=== PATIENT | female | born 1965 | race Caucasian/White ===

== ENCOUNTER 2017-12-12 07:20 | Day surgery (SDC) | payer OTHER ==
[2017-12-12] MEDS: SOD CHLORIDE 0.9% 250 ML (13:42)
[2017-12-12] MEDS: CEFAZOLIN 1 GM/50 ML (PMX) 50 ML IVPB ×2 (13:42→15:00)
[2017-12-12] MEDS: DIPHENHYDRAMINE 50 MG INJ (14:51)
[2017-12-12] MEDS: SOD CHLORIDE 0.9% 1,000 ML IV (15:00)
[2017-12-12] MEDS: FENTAnyl 50 MCG/ML VIAL ×2 (15:15→15:25)
[2017-12-12] MEDS: MIDAZOLAM 1 MG/ML 2 ML INJ ×2 (15:20→15:23)
[2017-12-12] MEDS: LIDOCAINE 1%/EPI 30 ML INJ (15:20)
[2017-12-12] MEDS: HEPARIN 1000 UNITS/ML 10 ML INJ (15:30)
[2017-12-12] MEDS: POLYMYXIN/BACITRACIN 1L IRRIG IRR (15:50)
[2017-12-12] MEDS ORDERED: HYDROCODONE/APAP (5/325) TAB PO (16:00)
== END 2017-12-12 17:58 | disposition home or self-care (01) ==
LOC: SDS 07:20
DX: C50.911 Malignant neoplasm of unspecified site of right female breast (principal)
CPT/HCPCS: 36561; 76942

== ENCOUNTER 2018-03-09 07:51 | Observation (INO) | payer OTHER ==
[~2018-03-09 07:51] MED LIST: CEFAZOLIN 1 GM INJ; EPINEPHrine 0.1 MG/ML SYG; SUCCINYLCHOLINE CHLORIDE 100 MG/5 ML SYG IV
[2018-03-09 09:31] LABS: ADD MAN DIFF? NO
[2018-03-09 09:37] LABS: BASOPHILS % 0.5 % (0.0-2.0); EOSINOPHILS # 0.7 10^3/ul (0.0-0.5); EOSINOPHILS % 8.3 % (0.0-7.0); HEMATOCRIT 39.2 % (37.0-47.0); HEMOGLOBIN 12.4 g/dl (12.0-16.0); LYMPHOCYTES # 1.6 10^3/ul (0.8-2.9); LYMPHOCYTES % 18.3 % (15.0-51.0); MEAN CORPUSCULAR HEMOGLOBIN 25.8 pg (29.0-33.0); MEAN CORPUSCULAR HGB CONC 31.6 g/dl (32.0-37.0); MEAN CORPUSCULAR VOLUME 81.7 fl (82.0-101.0); MEAN PLATELET VOLUME 11.6 fl (7.4-10.4); MONOCYTE # 0.9 10^3/ul (0.3-0.9); NEUTROPHIL # 5.3 10^3/ul (1.6-7.5); NEUTROPHILS % 61.4 % (39.0-77.0); PLATELET COUNT 205 10^3/UL (140-415); RED CELL DISTRIBUTION WIDTH 17.8 % (11.5-14.5)
[2018-03-09 09:37] LABS: WHITE BLOOD COUNT 8.5 10^3/ul (4.8-10.8)
[2018-03-09 09:52] LABS: ALANINE AMINOTRANSFERASE 36 IU/L (13-69); ALBUMIN 4.2 g/dl (3.3-4.9); ALBUMIN/GLOBULIN RATIO 1.35; ALKALINE PHOSPHATASE 75 IU/L (42-121); ANION GAP 12 (8-16); ASPARTATE AMINO TRANSFERASE 20 IU/L (15-46); BILIRUBIN,INDIRECT 0.3 mg/dl (0-1.1); BILIRUBIN,TOTAL 0.3 mg/dl (0.2-1.3); CARBON DIOXIDE 27 mmol/L (21-31); CHLORIDE 106 mmol/L (97-110); GLUCOSE 108 mg/dl (70-220); TOTAL PROTEIN 7.3 g/dl (6.1-8.1)
[2018-03-09 09:53] LABS: BLOOD UREA NITROGEN 17 mg/dl (7-20); CALCIUM 9.1 mg/dl (8.4-10.2); CREATININE 0.61 mg/dl (0.44-1.00); POTASSIUM 3.8 mmol/L (3.5-5.1); SODIUM 141 mmol/L (135-144)
[2018-03-09 09:57] LABS: INR 1.04; PROTIME 13.7 Sec (11.9-14.9); PT RATIO 1.1
[2018-03-09 09:58] LABS: PARTIAL THROMBOPLASTIN TIME 30.3 Sec (25.0-35.0)
[2018-03-09] MEDS ORDERED: ONDANSETRON 4 MG INJ (10:17)
[2018-03-09] MEDS ORDERED: ACETAMINOPHEN 1000MG/100ML IV 100 ML (10:17)
[2018-03-09] MEDS ORDERED: PROPOFOL 20 ML (10:17)
[2018-03-09] MEDS ORDERED: ROCURONIUM 50 MG INJ (10:17)
[2018-03-09] MEDS ORDERED: DEXAMETHASONE 4 MG/ML 1 ML INJ (10:17)
[2018-03-09] MEDS ORDERED: FENTAnyl 50 MCG/ML VIAL ×2 (10:17→11:42)
[2018-03-09] MEDS ORDERED: DIPHENHYDRAMINE 50 MG INJ IV (10:30)
[2018-03-09] MEDS ORDERED: METOCLOPRAMIDE 10 MG INJ IV ×3 (10:30→18:00)
[2018-03-09] MEDS ORDERED: MEPERIDINE 25 MG INJ IV (10:30)
[2018-03-09] MEDS ORDERED: FENTAnyl 50 MCG/ML VIAL IV ×2 (10:30)
[2018-03-09] MEDS ORDERED: LABETALOL HCL 20MG INJ IV (10:30)
[2018-03-09] MEDS ORDERED: hydrALAzine 20 MG INJ IV (10:30)
[2018-03-09] MEDS ORDERED: METOCLOPRAMIDE 10 MG INJ (10:45)
[2018-03-09] MEDS ORDERED: SCOPOLAMINE 1.5 MG PATCH (10:49)
[2018-03-09] MEDS ORDERED: PROVENTIL HFA 6.7GM INHALER (11:08)
[2018-03-09] MEDS ORDERED: SUGAMMADEX SODIUM 200 MG/2 ML VIAL IV (11:08)
[2018-03-09] MEDS ORDERED: HYDROCORTISONE 100 MG INJ (11:26)
[2018-03-09] MEDS: HYDROmorphONE 1 MG/5 ML IV SYRINGE IV (12:34)
[2018-03-09] MEDS: D5W-0.45 NACL + KCL 20 MEQ 1,000 ML IV ×3 (14:15→23:29)
[2018-03-09] MEDS: METOCLOPRAMIDE 10 MG INJ IV (15:15)
[2018-03-09] MEDS: ACETAMINOPHEN 1000MG/100ML IV 100 ML IVPB (15:26)
[2018-03-09] MEDS: morphine 2 MG INJ IV ×2 (20:13→23:30)
[2018-03-10 05:17] LABS: ADD MAN DIFF? NO
[2018-03-10 05:27] LABS: BASOPHILS % 0.1 % (0.0-2.0); EOSINOPHILS % 0.1 % (0.0-7.0); HEMATOCRIT 34.6 % (37.0-47.0); HEMOGLOBIN 10.8 g/dl (12.0-16.0); LYMPHOCYTES # 1.6 10^3/ul (0.8-2.9); LYMPHOCYTES % 8.8 % (15.0-51.0); MEAN CORPUSCULAR HEMOGLOBIN 25.8 pg (29.0-33.0); MEAN CORPUSCULAR HGB CONC 31.2 g/dl (32.0-37.0); MEAN CORPUSCULAR VOLUME 82.6 fl (82.0-101.0); MONOCYTE # 1.3 10^3/ul (0.3-0.9); MONOCYTES % 7.4 % (0.0-11.0); NEUTROPHIL # 14.9 10^3/ul (1.6-7.5); NEUTROPHILS % 83.1 % (39.0-77.0); PLATELET COUNT 219 10^3/UL (140-415); RED BLOOD COUNT 4.19 10^6/ul (4.20-5.40); RED CELL DISTRIBUTION WIDTH 18.3 % (11.5-14.5)
[2018-03-10 05:27] LABS: WHITE BLOOD COUNT 17.9 10^3/ul (4.8-10.8)
[2018-03-10] MEDS: HYDROCHLOROTHIAZIDE 25 MG TAB PO (05:45)
[2018-03-10] MEDS: D5W-0.45 NACL + KCL 20 MEQ 1,000 ML IV ×2 (05:45→17:21)
[2018-03-10 06:05] LABS: ANION GAP 12 (8-16); BLOOD UREA NITROGEN 14 mg/dl (7-20); CALCIUM 8.9 mg/dl (8.4-10.2); CARBON DIOXIDE 27 mmol/L (21-31); CHLORIDE 105 mmol/L (97-110); CREATININE 0.65 mg/dl (0.44-1.00); GLUCOSE 150 mg/dl (70-220); POTASSIUM 3.8 mmol/L (3.5-5.1); SODIUM 140 mmol/L (135-144)
[2018-03-10] MEDS: BENAZEPRIL 10 MG TAB PO (08:56)
[2018-03-10] MEDS ORDERED: BENAZEPRIL 10 MG TAB PO (09:00)
[2018-03-10] MEDS ORDERED: HYDROCHLOROTHIAZIDE 25 MG TAB PO (09:00)
[2018-03-10] MEDS: ALBUTEROL/IPRATROPIUM (NEB) 3 ML AMP HHN ×3 (10:00→19:42)
[2018-03-10] MEDS: LEVOFLOXACIN 500MG/D5W (PMX) 100 ML IVPB (10:34)
[2018-03-10] MEDS: METHYLPREDNISOLONE 40 MG INJ IV (10:34)
[2018-03-10] MEDS: ACETAMINOPHEN 1000MG/100ML IV 100 ML IVPB (12:02)
[2018-03-10] MEDS: PROMETHAZINE/CODEINE 5ML CUP PO ×2 (12:03→20:29)
[2018-03-10] MEDS: morphine 2 MG INJ IV (18:13)
[2018-03-11] MEDS: ALBUTEROL/IPRATROPIUM (NEB) 3 ML AMP HHN ×3 (01:16→13:13)
[2018-03-11] MEDS: D5W-0.45 NACL + KCL 20 MEQ 1,000 ML IV ×2 (04:07→11:23)
[2018-03-11 05:38] LABS: ADD MAN DIFF? NO
[2018-03-11 05:46] LABS: BASOPHILS % 0.2 % (0.0-2.0); EOSINOPHILS # 0.1 10^3/ul (0.0-0.5); EOSINOPHILS % 0.4 % (0.0-7.0); HEMATOCRIT 34.5 % (37.0-47.0); HEMOGLOBIN 10.4 g/dl (12.0-16.0); LYMPHOCYTES # 2.5 10^3/ul (0.8-2.9); LYMPHOCYTES % 18.2 % (15.0-51.0); MEAN CORPUSCULAR HEMOGLOBIN 25.8 pg (29.0-33.0); MEAN CORPUSCULAR HGB CONC 30.1 g/dl (32.0-37.0); MEAN CORPUSCULAR VOLUME 85.6 fl (82.0-101.0); MEAN PLATELET VOLUME 11.8 fl (7.4-10.4); MONOCYTE # 1.1 10^3/ul (0.3-0.9); MONOCYTES % 8.1 % (0.0-11.0); NEUTROPHIL # 9.8 10^3/ul (1.6-7.5); NEUTROPHILS % 72.5 % (39.0-77.0); PLATELET COUNT 183 10^3/UL (140-415); RED BLOOD COUNT 4.03 10^6/ul (4.20-5.40); RED CELL DISTRIBUTION WIDTH 18.8 % (11.5-14.5)
[2018-03-11 05:46] LABS: WHITE BLOOD COUNT 13.6 10^3/ul (4.8-10.8)
[2018-03-11] MEDS: HYDROCHLOROTHIAZIDE 25 MG TAB PO (05:54)
[2018-03-11] MEDS: morphine 2 MG INJ IV (06:09)
[2018-03-11 06:14] LABS: ANION GAP 10 (8-16); BLOOD UREA NITROGEN 13 mg/dl (7-20); CALCIUM 8.5 mg/dl (8.4-10.2); CARBON DIOXIDE 28 mmol/L (21-31); CHLORIDE 109 mmol/L (97-110); CREATININE 0.63 mg/dl (0.44-1.00); GLUCOSE 135 mg/dl (70-220); POTASSIUM 4.3 mmol/L (3.5-5.1); SODIUM 143 mmol/L (135-144)
[2018-03-11] MEDS: LEVOFLOXACIN 500MG/D5W (PMX) 100 ML IVPB (08:23)
[2018-03-11] MEDS: PROMETHAZINE/CODEINE 5ML CUP PO ×2 (08:24→12:43)
[2018-03-11] MEDS: METHYLPREDNISOLONE 40 MG INJ IV (08:24)
[2018-03-11] MEDS: BENAZEPRIL 10 MG TAB PO (08:24)
[2018-03-11] MEDS: morphine LIQ (10 MG/5 ML) CUP PO (15:50)
== END 2018-03-11 18:35 | disposition home or self-care (01) ==
LOC: SDS 07:51 → REC 12:03 → PP2 13:59
DX: C50.411 Malignant neoplasm of upper-outer quadrant of right female breast (principal); C77.3 Secondary and unspecified malignant neoplasm of axilla and upper limb lymph nodes; Z17.0 Estrogen receptor positive status [ER+]; I10 Essential (primary) hypertension; J45.901 Unspecified asthma with (acute) exacerbation; Z88.8 Allergy status to other drugs, medicaments and biological substances
CPT/HCPCS: 19301; 71045; 80048; 80053; 84703; 85025; 85610; 85730; 88307; 93005; 94640; 94664; G0378

== ENCOUNTER → 2018-05-07 | Outpatient (CLI) | payer OTHER | END | disposition home or self-care (01) | LOC: EKG 08:50 | DX: C50.919 Malignant neoplasm of unspecified site of unspecified female breast (principal) | CPT/HCPCS: 93306 ==

== ENCOUNTER 2018-07-13 11:37 | Inpatient (IN) | payer OTHER ==
[~2018-07-13 11:37] MED LIST changes: -CEFAZOLIN 1 GM INJ; +CEFAZOLIN 2 GM/50 ML (PMX) 50 ML IVPB; -EPINEPHrine 0.1 MG/ML SYG; +SOD CHLORIDE 0.9% 1,000 ML IV; -SUCCINYLCHOLINE CHLORIDE 100 MG/5 ML SYG IV
[2018-07-13] MEDS ORDERED: PROPOFOL 20 ML ×2 (12:00→14:02)
[2018-07-13] MEDS ORDERED: GLYCOPYRROLATE 0.4 MG INJ (12:00)
[2018-07-13] MEDS ORDERED: FENTAnyl 50 MCG/ML VIAL (12:00)
[2018-07-13] MEDS ORDERED: MIDAZOLAM 1 MG/ML 2 ML INJ (12:00)
[2018-07-13] MEDS ORDERED: LIDOCAINE 2% (SDV) 5 ML INJ ×2 (12:00→14:02)
[2018-07-13] MEDS ORDERED: ROCURONIUM 50 MG INJ (12:00)
[2018-07-13] MEDS ORDERED: NEOSTIGMINE 3 MG/3 ML SYRINGE (12:00)
[2018-07-13] MEDS ORDERED: DEXAMETHASONE 4 MG/ML 1 ML INJ ×2 (12:01→14:02)
[2018-07-13] MEDS ORDERED: ONDANSETRON 4 MG INJ (12:01)
[2018-07-13] MEDS ORDERED: CEFAZOLIN 1 GM INJ ×3 (12:01→14:02)
[2018-07-13 13:14] LABS: ADD MAN DIFF? NO
[2018-07-13 13:16] LABS: WHITE BLOOD COUNT 13.9 10^3/ul (4.8-10.8)
[2018-07-13 13:16] LABS: BASOPHIL # 0.1 10^3/ul (0.0-0.1); BASOPHILS % 0.4 % (0.0-2.0); EOSINOPHILS # 0.1 10^3/ul (0.0-0.5); EOSINOPHILS % 0.9 % (0.0-7.0); HEMATOCRIT 39.4 % (37.0-47.0); HEMOGLOBIN 12.6 g/dl (12.0-16.0); LYMPHOCYTES % 14.2 % (15.0-51.0); MEAN CORPUSCULAR HEMOGLOBIN 26.5 pg (29.0-33.0); MEAN CORPUSCULAR VOLUME 82.8 fl (82.0-101.0); MONOCYTE # 1.2 10^3/ul (0.3-0.9); MONOCYTES % 8.5 % (0.0-11.0); NEUTROPHIL # 10.5 10^3/ul (1.6-7.5); NEUTROPHILS % 75.6 % (39.0-77.0); PLATELET COUNT 245 10^3/UL (140-415); RED BLOOD COUNT 4.76 10^6/ul (4.20-5.40); RED CELL DISTRIBUTION WIDTH 16.7 % (11.5-14.5)
[2018-07-13 13:23] LABS: HOLD TRANSMISSIONS 1
[2018-07-13 13:43] LABS: ALANINE AMINOTRANSFERASE 27 IU/L (13-69); ALBUMIN 4.5 g/dl (3.3-4.9); ALBUMIN/GLOBULIN RATIO 1.32; ALKALINE PHOSPHATASE 83 IU/L (42-121); ANION GAP 12 (5-13); ASPARTATE AMINO TRANSFERASE 22 IU/L (15-46); BILIRUBIN,INDIRECT 0.5 mg/dl (0-1.1); BILIRUBIN,TOTAL 0.5 mg/dl (0.2-1.3); BLOOD UREA NITROGEN 13 mg/dl (7-20); CALCIUM 9.7 mg/dl (8.4-10.2); CARBON DIOXIDE 29 mmol/L (21-31); CHLORIDE 103 mmol/L (97-110); CREATININE 0.72 mg/dl (0.44-1.00); GLUCOSE 100 mg/dl (70-220); POTASSIUM 3.8 mmol/L (3.5-5.1); SODIUM 144 mmol/L (135-144); TOTAL PROTEIN 7.9 g/dl (6.1-8.1)
[2018-07-13] MEDS ORDERED: METOCLOPRAMIDE 10 MG INJ IV (14:00)
[2018-07-13] MEDS ORDERED: DIPHENHYDRAMINE 50 MG INJ IV ×3 (14:00→16:30)
[2018-07-13] MEDS ORDERED: MEPERIDINE 25 MG INJ IV (14:00)
[2018-07-13] MEDS ORDERED: HYDROmorphONE 1 MG/5 ML IV SYRINGE IV ×3 (14:00)
[2018-07-13] MEDS ORDERED: OXYCODONE/ACETAMINOPHEN (5/325) TAB PO ×3 (14:00→15:30)
[2018-07-13] MEDS ORDERED: LABETALOL HCL 20MG INJ IV (14:00)
[2018-07-13] MEDS ORDERED: MIDAZOLAM 1 MG/ML 2 ML INJ IV (14:00)
[2018-07-13] MEDS ORDERED: FENTAnyl 50 MCG/ML VIAL IV ×2 (14:00)
[2018-07-13] MEDS ORDERED: EPHEDrine SULFATE 50 MG/5 ML SYG IV (14:00)
[2018-07-13] MEDS ORDERED: hydrALAzine 20 MG INJ IV (14:00)
[2018-07-13] MEDS ORDERED: METOCLOPRAMIDE 10 MG INJ (14:02)
[2018-07-13] MEDS ORDERED: MEPERIDINE /PF (100 MG/2 ML) AMPULE (14:42)
[2018-07-13] MEDS ORDERED: EPHEDrine SULFATE 50 MG/5 ML SYG (15:12)
[2018-07-13] MEDS ORDERED: NALOXONE (0.4 MG/ML) INJ IV (15:30)
[2018-07-13] MEDS ORDERED: KETOROLAC 30 MG INJ IV (15:30)
[2018-07-13] MEDS: FENTAnyl 50 MCG/ML VIAL IV (15:55)
[2018-07-13] MEDS: HYDROmorphONE 0.2 MG/ML PCA IV (16:07)
[2018-07-13] MEDS ORDERED: ACETAMINOPHEN 325 MG TAB PO (16:30)
[2018-07-13] MEDS: METOCLOPRAMIDE 10 MG INJ IV (17:45)
[2018-07-13] MEDS: SOD CHLORIDE 0.9% 1,000 ML IV (17:45)
[2018-07-13] MEDS ORDERED: PROCHLORPERAZINE 10 MG INJ IM (18:30)
[2018-07-14] MEDS: METOCLOPRAMIDE 10 MG INJ IV ×2 (03:05→09:00)
[2018-07-14 05:32] LABS: ADD MAN DIFF? NO
[2018-07-14 05:37] LABS: WHITE BLOOD COUNT 15.4 10^3/ul (4.8-10.8)
[2018-07-14 05:37] LABS: BASOPHILS % 0.1 % (0.0-2.0); HEMATOCRIT 33.8 % (37.0-47.0); HEMOGLOBIN 10.7 g/dl (12.0-16.0); LYMPHOCYTES # 0.8 10^3/ul (0.8-2.9); LYMPHOCYTES % 5.3 % (15.0-51.0); MEAN CORPUSCULAR HEMOGLOBIN 26.8 pg (29.0-33.0); MEAN CORPUSCULAR HGB CONC 31.7 g/dl (32.0-37.0); MEAN CORPUSCULAR VOLUME 84.5 fl (82.0-101.0); MEAN PLATELET VOLUME 11.4 fl (7.4-10.4); MONOCYTE # 0.9 10^3/ul (0.3-0.9); MONOCYTES % 5.6 % (0.0-11.0); NEUTROPHIL # 13.6 10^3/ul (1.6-7.5); NEUTROPHILS % 88.4 % (39.0-77.0); PLATELET COUNT 224 10^3/UL (140-415); RED CELL DISTRIBUTION WIDTH 16.9 % (11.5-14.5)
[2018-07-14] MEDS: HYDROCHLOROTHIAZIDE 25 MG TAB PO ×2 (08:45→14:36)
[2018-07-14] MEDS: BENAZEPRIL 10 MG TAB PO ×2 (08:45→14:36)
[2018-07-14] MEDS: HYDROmorphONE 0.2 MG/ML PCA IV (10:15)
[2018-07-14] MEDS: OXYCODONE/ACETAMINOPHEN (5/325) TAB PO ×2 (14:39→18:42)
[2018-07-15] MEDS: OXYCODONE/ACETAMINOPHEN (5/325) TAB PO ×3 (01:35→14:58)
[2018-07-15 05:14] LABS: ADD MAN DIFF? NO
[2018-07-15 05:17] LABS: BASOPHILS % 0.4 % (0.0-2.0); EOSINOPHILS # 0.1 10^3/ul (0.0-0.5); EOSINOPHILS % 0.9 % (0.0-7.0); HEMATOCRIT 29.3 % (37.0-47.0); HEMOGLOBIN 9.4 g/dl (12.0-16.0); LYMPHOCYTES # 2.1 10^3/ul (0.8-2.9); LYMPHOCYTES % 19.2 % (15.0-51.0); MEAN CORPUSCULAR HEMOGLOBIN 26.9 pg (29.0-33.0); MEAN CORPUSCULAR HGB CONC 32.1 g/dl (32.0-37.0); MEAN CORPUSCULAR VOLUME 83.7 fl (82.0-101.0); MEAN PLATELET VOLUME 11.5 fl (7.4-10.4); MONOCYTE # 0.9 10^3/ul (0.3-0.9); MONOCYTES % 8.5 % (0.0-11.0); NEUTROPHIL # 7.9 10^3/ul (1.6-7.5); NEUTROPHILS % 70.6 % (39.0-77.0); PLATELET COUNT 203 10^3/UL (140-415); RED CELL DISTRIBUTION WIDTH 17.1 % (11.5-14.5)
[2018-07-15 05:17] LABS: WHITE BLOOD COUNT 11.1 10^3/ul (4.8-10.8)
[2018-07-15] MEDS: BENAZEPRIL 10 MG TAB PO (08:23)
[2018-07-15] MEDS: HYDROCHLOROTHIAZIDE 25 MG TAB PO (08:24)
== END 2018-07-15 16:29 | disposition home or self-care (01) | DRG 581 ==
LOC: REC 11:37 → PP2 17:10
PROC: 0HTT0ZZ Resection of Right Breast, Open Approach (ICD-10-PCS; principal; 2018-07-13 13:00)
PROC: 07B50ZX Excision of Right Axillary Lymphatic, Open Approach, Diagnostic (ICD-10-PCS; 2018-07-13 13:00)
DX: C50.911 Malignant neoplasm of unspecified site of right female breast (principal); I10 Essential (primary) hypertension
CPT/HCPCS: 71045; 80053; 85025; 88307; 93005

== ENCOUNTER 2018-11-23 11:10 | Day surgery (SDC) | payer OTHER ==
[2018-11-23] MEDS: BUPIVACAINE 0.5% (SDV) 30 ML INJ (12:38)
[2018-11-23] MEDS ORDERED: MIDAZOLAM 1 MG/ML 2 ML INJ (13:41)
[2018-11-23] MEDS ORDERED: FENTAnyl 50 MCG/ML VIAL (13:41)
[2018-11-23] MEDS ORDERED: PROPOFOL 20 ML (15:00)
[2018-11-23] MEDS ORDERED: LIDOCAINE 2% (SDV) 5 ML INJ (15:00)
[2018-11-23] MEDS ORDERED: CEFAZOLIN 1 GM INJ (15:01)
[2018-11-23] MEDS ORDERED: ONDANSETRON 4 MG INJ (15:01)
[2018-11-23] MEDS ORDERED: METOCLOPRAMIDE 10 MG INJ (15:01)
[2018-11-23] MEDS ORDERED: ACETAMINOPHEN 1000MG/100ML IV 100 ML IVPB (15:30)
[2018-11-23] MEDS ORDERED: LABETALOL HCL 20MG INJ IV (16:00)
[2018-11-23] MEDS ORDERED: hydrALAzine 20 MG INJ IV (16:00)
[2018-11-23] MEDS ORDERED: METOCLOPRAMIDE 10 MG INJ IV (16:00)
[2018-11-23] MEDS: FENTAnyl 50 MCG/ML VIAL IV (16:08)
[2018-11-23] MEDS: DIPHENHYDRAMINE 50 MG INJ IV (16:08)
[2018-11-23] MEDS: D5W-0.45 NACL + KCL 20 MEQ 1,000 ML IV ×2 (17:24→23:04)
[2018-11-23] MEDS: HYDROCODONE/APAP (5/325) TAB PO (19:23)
[2018-11-24] MEDS: HYDROCODONE/APAP (5/325) TAB PO ×3 (02:31→20:18)
[2018-11-24] MEDS: D5W-0.45 NACL + KCL 20 MEQ 1,000 ML IV ×3 (05:50→22:39)
[2018-11-24 06:25] LABS: ABNORMAL IP MESSAGE 1; HEMATOCRIT 23.6 % (37.0-47.0); HEMOGLOBIN 7.5 g/dl (12.0-16.0); MEAN CORPUSCULAR HEMOGLOBIN 25.4 pg (29.0-33.0); MEAN CORPUSCULAR HGB CONC 31.8 g/dl (32.0-37.0); PLATELET COUNT 33 10^3/UL (140-415); RED BLOOD COUNT 2.95 10^6/ul (4.20-5.40); RED CELL DISTRIBUTION WIDTH 19.8 % (11.5-14.5)
[2018-11-24 06:25] LABS: WHITE BLOOD COUNT 4.2 10^3/ul (4.8-10.8)
[2018-11-24 06:33] LABS: POSITIVE DIFF @See below
[2018-11-24 06:34] LABS: ADD MAN DIFF? YES
[2018-11-24 06:53] LABS: ANION GAP 7 (5-13); BLOOD UREA NITROGEN 10 mg/dl (7-20); CALCIUM 8.3 mg/dl (8.4-10.2); CARBON DIOXIDE 28 mmol/L (21-31); CHLORIDE 103 mmol/L (97-110); CREATININE 0.66 mg/dl (0.44-1.00); Estimated GFR > 60 mL/min (>60); GLUCOSE 136 mg/dl (70-220); POTASSIUM 3.5 mmol/L (3.5-5.1); SODIUM 138 mmol/L (135-144)
[2018-11-24] MEDS: KETOROLAC 30 MG INJ IV (09:51)
[2018-11-24 10:04] LABS: ANISOCYTOSIS 3+ (0-0); BAND NEUTROPHILS #M 0.5 10^3/ul (0.0-0.6); BAND NEUTROPHILS % (M) 13 % (0-4); LYMPHOCYTES #M 0.9 10^3/ul (0.8-2.9); LYMPHOCYTES % (M) 23 % (15-51); MICROCYTOSIS 3+ (0-0); MONOCYTE #M 0.1 10^3/ul (0.3-0.9); MONOCYTES % (M) 4 % (0-11); MYELOCYTES #M 0.1 10^3/ul (0.0-0.0); MYELOCYTES % (M) 3 % (0-0); PLATELET ESTIMATE SIG DECREASED; POIKILOCYTOSIS 1+ (0-0); PROMYELOCYTES % (M) 1 % (0-0); SEG NEUT #M 2.4 10^3/ul (1.6-7.5); SEGMENTED NEUTROPHILS (M) % 56 % (39-77); SMUDGE%M 2 % (0-0)
[2018-11-24] MEDS: BENAZEPRIL 10 MG TAB PO (17:00)
[2018-11-24] MEDS: HYDROCHLOROTHIAZIDE 25 MG TAB PO (17:00)
[2018-11-24] MEDS: METOCLOPRAMIDE 10 MG INJ IV (21:35)
[2018-11-25] MEDS: HYDROCODONE/APAP (5/325) TAB PO ×3 (03:52→14:14)
[2018-11-25] MEDS: HYDROCHLOROTHIAZIDE 25 MG TAB PO (06:08)
[2018-11-25 06:17] LABS: ADD MAN DIFF? NO
[2018-11-25 06:20] LABS: WHITE BLOOD COUNT 3.7 10^3/ul (4.8-10.8)
[2018-11-25 06:20] LABS: ABNORMAL IP MESSAGE 1; EOSINOPHILS % 0.5 % (0.0-7.0); HEMATOCRIT 24.3 % (37.0-47.0); HEMOGLOBIN 7.8 g/dl (12.0-16.0); LYMPHOCYTES # 1.2 10^3/ul (0.8-2.9); LYMPHOCYTES % 32.9 % (15.0-51.0); MEAN CORPUSCULAR HEMOGLOBIN 25.5 pg (29.0-33.0); MEAN CORPUSCULAR HGB CONC 32.1 g/dl (32.0-37.0); MEAN CORPUSCULAR VOLUME 79.4 fl (82.0-101.0); MONOCYTE # 0.7 10^3/ul (0.3-0.9); MONOCYTES % 17.8 % (0.0-11.0); NEUTROPHIL # 1.8 10^3/ul (1.6-7.5); NEUTROPHILS % 48.3 % (39.0-77.0); RED BLOOD COUNT 3.06 10^6/ul (4.20-5.40); RED CELL DISTRIBUTION WIDTH 20.6 % (11.5-14.5)
[2018-11-25 06:42] LABS: PLATELET COUNT 40 10^3/UL (140-415); POSITIVE DIFF @See below
[2018-11-25] MEDS: D5W-0.45 NACL + KCL 20 MEQ 1,000 ML IV ×2 (06:59→15:04)
[2018-11-25] MEDS: BENAZEPRIL 10 MG TAB PO (08:56)
== END 2018-11-25 16:50 | disposition home or self-care (01) ==
LOC: SDS 11-25 16:50 → REC 17:10 → SDS 11:10 → 2NE 17:10 → REC 15:27 → 2NE 17:10
DX: C50.911 Malignant neoplasm of unspecified site of right female breast (principal); I10 Essential (primary) hypertension
CPT/HCPCS: 19260; 80048; 84703; 85025; 88307

== ENCOUNTER 2018-12-06 20:47 | Inpatient (IN) | payer OTHER ==
[2018-12-07] MEDS ORDERED: ACETAMINOPHEN 325 MG TAB PO (01:00)
[2018-12-07] MEDS ORDERED: ALBUTEROL/IPRATROPIUM (NEB) 3 ML AMP HHN (01:00)
[2018-12-07] MEDS ORDERED: VANCOMYCIN IV PER PHARMACY XX (01:00)
[2018-12-07] MEDS ORDERED: NACL 0.9% 3 ML SYG IV (01:00)
[2018-12-07] MEDS: CEFEPIME 1GM/50 ML (PMX) 50 ML IVPB ×4 (01:41→22:36)
[2018-12-07] MEDS: VANCOMYCIN HCL 1.5 GM in SOD CHLORIDE 0.9% 250 ML IVPB (04:25)
[2018-12-07] MEDS: POLYETHYLENE GLYCOL 17 GM PACKET PO (04:59)
[2018-12-07] MEDS: morphine 2 MG INJ IV ×2 (04:59→09:07)
[2018-12-07] MEDS: FERROUS SULFATE (EC) 325 MG TAB PO ×2 (08:59→21:06)
[2018-12-07] MEDS: BENAZEPRIL 10 MG TAB PO (08:59)
[2018-12-07 13:48] LABS: CREATININE 0.63 mg/dl (0.44-1.00)
[2018-12-07 13:48] LABS: BLOOD UREA NITROGEN 12 mg/dl (7-20)
[2018-12-07] MEDS ORDERED: VANCOMYCIN 1 GM 250 ML IVPB (15:00)
[2018-12-07] MEDS: VANCOMYCIN 1 GM 250 ML IVPB (16:16)
[2018-12-07] MEDS: HYDROCODONE/APAP (5/325) TAB PO ×2 (16:20→21:07)
[2018-12-07] MEDS ORDERED: NIRAPARIB TOSYLATE 100 MG PO (21:00)
[2018-12-07] MEDS: DOCUSATE SODIUM 100 MG CAP PO (21:06)
[2018-12-07] MEDS ORDERED: COLLAGENASE 5 GM (UD JAR) TOP (22:05)
[2018-12-08] MEDS: VANCOMYCIN 1 GM 250 ML IVPB ×2 (04:45→17:37)
[2018-12-08] MEDS: HYDROCODONE/APAP (5/325) TAB PO ×4 (05:15→21:09)
[2018-12-08] MEDS: METOCLOPRAMIDE 10 MG INJ IV (05:16)
[2018-12-08 05:20] LABS: WHITE BLOOD COUNT 8.5 10^3/ul (4.8-10.8)
[2018-12-08 05:20] LABS: ABNORMAL IP MESSAGE 1; HEMATOCRIT 20.5 % (37.0-47.0); MEAN CORPUSCULAR HEMOGLOBIN 27.6 pg (29.0-33.0); MEAN CORPUSCULAR HGB CONC 31.2 g/dl (32.0-37.0); MEAN CORPUSCULAR VOLUME 88.4 fl (82.0-101.0); MEAN PLATELET VOLUME 9.5 fl (7.4-10.4); PLATELET COUNT 278 10^3/UL (140-415); RED BLOOD COUNT 2.32 10^6/ul (4.20-5.40); RED CELL DISTRIBUTION WIDTH 24.5 % (11.5-14.5)
[2018-12-08 05:25] LABS: POSITIVE DIFF @See below
[2018-12-08 05:26] LABS: ADD MAN DIFF? YES; HEMOGLOBIN 6.4 g/dl (12.0-16.0)
[2018-12-08 06:09] LABS: ALANINE AMINOTRANSFERASE 14 IU/L (13-69); ALBUMIN 3.4 g/dl (3.3-4.9); ALBUMIN/GLOBULIN RATIO 1.09; ALKALINE PHOSPHATASE 82 IU/L (42-121); ANION GAP 7 (5-13); ASPARTATE AMINO TRANSFERASE 14 IU/L (15-46); BILIRUBIN,INDIRECT 0.2 mg/dl (0-1.1); BILIRUBIN,TOTAL 0.2 mg/dl (0.2-1.3); BLOOD UREA NITROGEN 11 mg/dl (7-20); CALCIUM 8.6 mg/dl (8.4-10.2); CARBON DIOXIDE 26 mmol/L (21-31); CHLORIDE 103 mmol/L (97-110); CREATININE 0.57 mg/dl (0.44-1.00); Estimated GFR > 60 mL/min (>60); GLUCOSE 113 mg/dl (70-220); MAGNESIUM 2.3 mg/dl (1.7-2.5); SODIUM 136 mmol/L (135-144); TOTAL PROTEIN 6.5 g/dl (6.1-8.1)
[2018-12-08 09:29] LABS: ANISOCYTOSIS 3+ (0-0); BAND NEUTROPHILS #M 0.5 10^3/ul (0.0-0.6); BAND NEUTROPHILS % (M) 6 % (0-4); LYMPHOCYTES #M 0.7 10^3/ul (0.8-2.9); LYMPHOCYTES % (M) 9 % (15-51); MICROCYTOSIS 3+ (0-0); MONOCYTE #M 0.5 10^3/ul (0.3-0.9); MONOCYTES % (M) 6 % (0-11); OVALOCYTES 1+ (0-0); PLATELET ESTIMATE NORMAL; POIKILOCYTOSIS 1+ (0-0); POLYCHROMASIA 3+ (0-0); SEG NEUT #M 6.8 10^3/ul (1.6-7.5); SEGMENTED NEUTROPHILS (M) % 79 % (39-77); SMUDGE%M 33 % (0-0)
[2018-12-08] MEDS: DOCUSATE SODIUM 100 MG CAP PO ×2 (09:52→20:10)
[2018-12-08] MEDS: CEFEPIME 1GM/50 ML (PMX) 50 ML IVPB (09:52)
[2018-12-08] MEDS: BENAZEPRIL 10 MG TAB PO (09:52)
[2018-12-08] MEDS: HYDROCHLOROTHIAZIDE 25 MG TAB PO (09:52)
[2018-12-08] MEDS: FERROUS SULFATE (EC) 325 MG TAB PO ×2 (09:55→20:10)
[2018-12-08 10:59] LABS: IMMEDIATE SPIN CROSSMATCH 1 3
[2018-12-08] MEDS: CEFAZOLIN 1 GM/50 ML (PMX) 50 ML IVPB (21:05)
[2018-12-09] MEDS: HYDROCODONE/APAP (5/325) TAB PO ×4 (03:58→22:38)
[2018-12-09] MEDS: CEFAZOLIN 1 GM/50 ML (PMX) 50 ML IVPB ×3 (05:25→21:32)
[2018-12-09 06:35] LABS: ADD MAN DIFF? NO
[2018-12-09 06:49] LABS: WHITE BLOOD COUNT 9.9 10^3/ul (4.8-10.8)
[2018-12-09 06:49] LABS: BASOPHILS % 0.3 % (0.0-2.0); EOSINOPHILS % 0.3 % (0.0-7.0); HEMATOCRIT 30.3 % (37.0-47.0); HEMOGLOBIN 9.8 g/dl (12.0-16.0); LYMPHOCYTES # 1.5 10^3/ul (0.8-2.9); LYMPHOCYTES % 14.7 % (15.0-51.0); MEAN CORPUSCULAR HEMOGLOBIN 28.2 pg (29.0-33.0); MEAN CORPUSCULAR HGB CONC 32.3 g/dl (32.0-37.0); MEAN CORPUSCULAR VOLUME 87.1 fl (82.0-101.0); MEAN PLATELET VOLUME 9.9 fl (7.4-10.4); MONOCYTE # 0.9 10^3/ul (0.3-0.9); MONOCYTES % 8.8 % (0.0-11.0); NEUTROPHIL # 7.5 10^3/ul (1.6-7.5); NEUTROPHILS % 75.1 % (39.0-77.0); PLATELET COUNT 307 10^3/UL (140-415); RED BLOOD COUNT 3.48 10^6/ul (4.20-5.40); RED CELL DISTRIBUTION WIDTH 19.9 % (11.5-14.5)
[2018-12-09 07:11] LABS: ANION GAP 10 (5-13); BLOOD UREA NITROGEN 11 mg/dl (7-20); CALCIUM 8.6 mg/dl (8.4-10.2); CARBON DIOXIDE 25 mmol/L (21-31); CHLORIDE 101 mmol/L (97-110); CREATININE 0.56 mg/dl (0.44-1.00); Estimated GFR > 60 mL/min (>60); GLUCOSE 121 mg/dl (70-220); POTASSIUM 3.5 mmol/L (3.5-5.1); SODIUM 136 mmol/L (135-144)
[2018-12-09] MEDS: DOCUSATE SODIUM 100 MG CAP PO ×2 (08:12→20:57)
[2018-12-09] MEDS: BENAZEPRIL 10 MG TAB PO (08:12)
[2018-12-09] MEDS: FERROUS SULFATE (EC) 325 MG TAB PO ×2 (08:12→20:57)
[2018-12-09] MEDS: RIFAMPIN 300 MG CAP PO (08:12)
[2018-12-09] MEDS: HYDROCHLOROTHIAZIDE 25 MG TAB PO (08:13)
[2018-12-09] MEDS: METOCLOPRAMIDE 10 MG INJ IV (19:43)
[2018-12-09] MEDS: COLLAGENASE 5 GM (UD JAR) TOP (23:30)
[2018-12-10] MEDS: HYDROCODONE/APAP (5/325) TAB PO ×4 (04:51→20:04)
[2018-12-10] MEDS: CEFAZOLIN 1 GM/50 ML (PMX) 50 ML IVPB ×3 (05:59→22:10)
[2018-12-10] MEDS: HYDROCHLOROTHIAZIDE 25 MG TAB PO (08:32)
[2018-12-10] MEDS: BENAZEPRIL 10 MG TAB PO (08:32)
[2018-12-10] MEDS: DOCUSATE SODIUM 100 MG CAP PO ×2 (08:32→21:03)
[2018-12-10] MEDS: FERROUS SULFATE (EC) 325 MG TAB PO ×2 (08:32→21:03)
[2018-12-10] MEDS: RIFAMPIN 300 MG CAP PO (08:33)
[2018-12-10] MEDS: COLLAGENASE 5 GM (UD JAR) TOP ×2 (08:33→21:03)
[2018-12-10] MEDS: morphine 2 MG INJ IV (21:12)
[2018-12-11] MEDS: HYDROCODONE/APAP (5/325) TAB PO ×5 (00:27→20:12)
[2018-12-11 05:26] LABS: ADD MAN DIFF? NO
[2018-12-11] MEDS: CEFAZOLIN 1 GM/50 ML (PMX) 50 ML IVPB ×3 (05:34→22:04)
[2018-12-11 05:38] LABS: WHITE BLOOD COUNT 7.5 10^3/ul (4.8-10.8)
[2018-12-11 05:38] LABS: BASOPHILS % 0.4 % (0.0-2.0); EOSINOPHILS # 0.1 10^3/ul (0.0-0.5); EOSINOPHILS % 0.7 % (0.0-7.0); LYMPHOCYTES # 1.5 10^3/ul (0.8-2.9); LYMPHOCYTES % 19.7 % (15.0-51.0); MEAN CORPUSCULAR HGB CONC 32.3 g/dl (32.0-37.0); MEAN CORPUSCULAR VOLUME 86.8 fl (82.0-101.0); MEAN PLATELET VOLUME 9.6 fl (7.4-10.4); MONOCYTE # 0.9 10^3/ul (0.3-0.9); MONOCYTES % 11.6 % (0.0-11.0); NEUTROPHIL # 5.1 10^3/ul (1.6-7.5); NEUTROPHILS % 66.9 % (39.0-77.0); PLATELET COUNT 316 10^3/UL (140-415); RED BLOOD COUNT 3.57 10^6/ul (4.20-5.40); RED CELL DISTRIBUTION WIDTH 19.8 % (11.5-14.5)
[2018-12-11] MEDS: RIFAMPIN 300 MG CAP PO (09:19)
[2018-12-11] MEDS: DOCUSATE SODIUM 100 MG CAP PO ×2 (09:20→20:58)
[2018-12-11] MEDS: BENAZEPRIL 10 MG TAB PO (09:20)
[2018-12-11] MEDS: COLLAGENASE 5 GM (UD JAR) TOP ×2 (09:20→20:58)
[2018-12-11] MEDS: HYDROCHLOROTHIAZIDE 25 MG TAB PO (09:20)
[2018-12-11] MEDS: FERROUS SULFATE (EC) 325 MG TAB PO ×2 (09:20→20:58)
[2018-12-11] MEDS: morphine 2 MG INJ IV (16:42)
[2018-12-12] MEDS: HYDROCODONE/APAP (5/325) TAB PO ×5 (02:38→20:26)
[2018-12-12] MEDS: CEFAZOLIN 1 GM/50 ML (PMX) 50 ML IVPB ×3 (05:32→21:27)
[2018-12-12 07:24] LABS: ADD MAN DIFF? NO
[2018-12-12 07:30] LABS: WHITE BLOOD COUNT 8.5 10^3/ul (4.8-10.8)
[2018-12-12 07:30] LABS: BASOPHILS % 0.2 % (0.0-2.0); EOSINOPHILS # 0.1 10^3/ul (0.0-0.5); EOSINOPHILS % 0.8 % (0.0-7.0); HEMATOCRIT 30.2 % (37.0-47.0); HEMOGLOBIN 9.7 g/dl (12.0-16.0); LYMPHOCYTES # 1.4 10^3/ul (0.8-2.9); LYMPHOCYTES % 16.5 % (15.0-51.0); MEAN CORPUSCULAR HEMOGLOBIN 28.3 pg (29.0-33.0); MEAN CORPUSCULAR HGB CONC 32.1 g/dl (32.0-37.0); MEAN PLATELET VOLUME 9.5 fl (7.4-10.4); MONOCYTE # 0.9 10^3/ul (0.3-0.9); MONOCYTES % 11.1 % (0.0-11.0); NEUTROPHILS % 70.8 % (39.0-77.0); PLATELET COUNT 324 10^3/UL (140-415); RED BLOOD COUNT 3.43 10^6/ul (4.20-5.40); RED CELL DISTRIBUTION WIDTH 19.5 % (11.5-14.5)
[2018-12-12 07:46] LABS: ANION GAP 7 (5-13); BLOOD UREA NITROGEN 10 mg/dl (7-20); CALCIUM 9.2 mg/dl (8.4-10.2); CARBON DIOXIDE 31 mmol/L (21-31); CHLORIDE 103 mmol/L (97-110); CREATININE 0.55 mg/dl (0.44-1.00); Estimated GFR > 60 mL/min (>60); GLUCOSE 109 mg/dl (70-220); POTASSIUM 3.6 mmol/L (3.5-5.1); SODIUM 141 mmol/L (135-144)
[2018-12-12] MEDS: HYDROCHLOROTHIAZIDE 25 MG TAB PO (08:42)
[2018-12-12] MEDS: DOCUSATE SODIUM 100 MG CAP PO ×2 (08:42→20:26)
[2018-12-12] MEDS: COLLAGENASE 5 GM (UD JAR) TOP ×2 (08:42→20:27)
[2018-12-12] MEDS: FERROUS SULFATE (EC) 325 MG TAB PO ×2 (08:42→20:27)
[2018-12-12] MEDS: RIFAMPIN 300 MG CAP PO (08:42)
[2018-12-12] MEDS: BENAZEPRIL 10 MG TAB PO (08:42)
[2018-12-12] MEDS: morphine 2 MG INJ IV (14:34)
[2018-12-12] MEDS: OXYCODONE/ACETAMINOPHEN (10/325) TAB PO (21:37)
[2018-12-13] MEDS: OXYCODONE/ACETAMINOPHEN (10/325) TAB PO (01:37)
[2018-12-13] MEDS: CEFAZOLIN 1 GM/50 ML (PMX) 50 ML IVPB ×2 (05:00→14:26)
[2018-12-13] MEDS: HYDROmorphONE 4 MG TAB PO ×4 (05:00→17:36)
[2018-12-13] MEDS: DOCUSATE SODIUM 100 MG CAP PO (09:11)
[2018-12-13] MEDS: BENAZEPRIL 10 MG TAB PO (09:11)
[2018-12-13] MEDS: FERROUS SULFATE (EC) 325 MG TAB PO (09:11)
[2018-12-13] MEDS: HYDROCHLOROTHIAZIDE 25 MG TAB PO (09:11)
[2018-12-13] MEDS: RIFAMPIN 300 MG CAP PO (09:11)
[2018-12-13] MEDS: COLLAGENASE 5 GM (UD JAR) TOP (09:20)
[2018-12-13] MEDS: HEPARIN (100 UNITS/ML) 5 ML SYG CATHETER (18:50)
== END 2018-12-13 19:00 | disposition home health service (06) | DRG 863 ==
LOC: 6WM 12-08 08:09 → PP2 20:47
PROVIDERS: Hospitalist; Pediatrics Neonatal-Perinatal Medicine
PROC: 30233N1 Transfusion of Nonautologous Red Blood Cells into Peripheral Vein, Percutaneous Approach (ICD-10-PCS; principal; 2018-12-08)
DX: T81.41XA Infection following a procedure, superficial incisional surgical site, initial encounter (principal); L03.313 Cellulitis of chest wall; L02.213 Cutaneous abscess of chest wall; C50.911 Malignant neoplasm of unspecified site of right female breast; D64.81 Anemia due to antineoplastic chemotherapy; D63.0 Anemia in neoplastic disease; B95.61 Methicillin susceptible Staphylococcus aureus infection as the cause of diseases classified elsewhere; E87.6 Hypokalemia; I10 Essential (primary) hypertension; E66.9 Obesity, unspecified; Z68.32 Body mass index [BMI] 32.0-32.9, adult; Y83.8 Other surgical procedures as the cause of abnormal reaction of the patient, or of later complication, without mention of misadventure at the time of the procedure; Y92.019 Unspecified place in single-family (private) house as the place of occurrence of the external cause; Z90.11 Acquired absence of right breast and nipple
CPT/HCPCS: 36430; 80048; 80053; 82565; 83735; 84100; 84520; 85025; 86850; 86900; 86901; 86920; 87070; 87081; 93971

== ENCOUNTER 2019-01-30 10:29 | Inpatient (IN) | payer OTHER ==
[2019-01-30 11:30] LABS: ADD MAN DIFF? NO
[2019-01-30 11:33] LABS: ABNORMAL IP MESSAGE 1; BASOPHILS % 0.4 % (0.0-2.0); LYMPHOCYTES # 1.1 10^3/ul (0.8-2.9); LYMPHOCYTES % 20.5 % (15.0-51.0); MEAN CORPUSCULAR HEMOGLOBIN 32.9 pg (29.0-33.0); MEAN CORPUSCULAR HGB CONC 33.3 g/dl (32.0-37.0); MEAN CORPUSCULAR VOLUME 98.7 fl (82.0-101.0); MEAN PLATELET VOLUME 10.2 fl (7.4-10.4); MONOCYTE # 0.8 10^3/ul (0.3-0.9); MONOCYTES % 15.1 % (0.0-11.0); NEUTROPHIL # 3.4 10^3/ul (1.6-7.5); NEUTROPHILS % 63.6 % (39.0-77.0); PLATELET COUNT 131 10^3/UL (140-415); RED BLOOD COUNT 1.52 10^6/ul (4.20-5.40); RED CELL DISTRIBUTION WIDTH 19.6 % (11.5-14.5)
[2019-01-30 11:33] LABS: WHITE BLOOD COUNT 5.4 10^3/ul (4.8-10.8)
[2019-01-30 11:35] LABS: POSITIVE DIFF @See below
[2019-01-30 11:57] LABS: ALANINE AMINOTRANSFERASE 23 IU/L (13-69); ALBUMIN 4.2 g/dl (3.3-4.9); ALKALINE PHOSPHATASE 103 IU/L (42-121); ANION GAP 10 (5-13); ASPARTATE AMINO TRANSFERASE 26 IU/L (15-46); BILIRUBIN,INDIRECT 0.7 mg/dl (0-1.1); BILIRUBIN,TOTAL 0.7 mg/dl (0.2-1.3); BLOOD UREA NITROGEN 15 mg/dl (7-20); CALCIUM 9.1 mg/dl (8.4-10.2); CARBON DIOXIDE 26 mmol/L (21-31); CHLORIDE 104 mmol/L (97-110); CREATININE 0.76 mg/dl (0.44-1.00); Estimated GFR > 60 mL/min (>60); GLUCOSE 120 mg/dl (70-220); LIPASE 66 U/L (23-300); POTASSIUM 3.5 mmol/L (3.5-5.1); SODIUM 140 mmol/L (135-144); TOTAL PROTEIN 7.7 g/dl (6.1-8.1)
[2019-01-30 12:05] LABS: INR 1.06; PROTIME 13.9 Sec (11.9-14.9); PT RATIO 1.1
[2019-01-30 12:06] LABS: PARTIAL THROMBOPLASTIN TIME 27.6 Sec (23.0-35.0)
[2019-01-30 12:08] LABS: TROPONIN-I < 0.012 ng/ml (0.000-0.120)
[2019-01-30] MEDS: SOD CHLORIDE 0.9% 500 ML IV (12:11)
[2019-01-30] MEDS: ONDANSETRON 4 MG INJ IV (12:12)
[2019-01-30 12:19] LABS: ANISOCYTOSIS 2+ (0-0); BAND NEUTROPHILS #M 1.4 10^3/ul (0.0-0.6); BAND NEUTROPHILS % (M) 27 % (0-4); HYPOCHROMASIA 1+ (0-0); LYMPHOCYTES % (M) 20 % (15-51); MICROCYTOSIS 2+ (0-0); MONOCYTE #M 0.4 10^3/ul (0.3-0.9); MONOCYTES % (M) 8 % (0-11); MYELOCYTES #M 0.1 10^3/ul (0.0-0.0); MYELOCYTES % (M) 2 % (0-0); PLATELET ESTIMATE DECREASED; POIKILOCYTOSIS 1+ (0-0); POLYCHROMASIA 3+ (0-0); SEG NEUT #M 2.4 10^3/ul (1.6-7.5); SEGMENTED NEUTROPHILS (M) % 43 % (39-77); SMUDGE%M 3 % (0-0)
[2019-01-30] MEDS: HYDROCODONE/APAP (10/325) TAB PO (15:18)
[2019-01-30 15:43] LABS: IMMEDIATE SPIN CROSSMATCH 1 3
[2019-01-30] MEDS ORDERED: ONDANSETRON 4 MG INJ IV (16:30)
[2019-01-30] MEDS ORDERED: MAGNESIUM HYDROXIDE 30ML CUP PO (16:30)
[2019-01-30] MEDS ORDERED: ACETAMINOPHEN 325 MG TAB PO (16:30)
[2019-01-30 19:33] LABS: HEMATOCRIT 24.9 % (37.0-47.0); HEMOGLOBIN 8.3 g/dl (12.0-16.0)
[2019-01-30] MEDS: HYDROCODONE/APAP (5/325) TAB PO (20:02)
[2019-01-30] MEDS: FAMOTIDINE 20 MG TAB PO (22:28)
[2019-01-30] MEDS: DOCUSATE SODIUM 100 MG CAP PO (22:29)
[2019-01-31] MEDS ORDERED: METOCLOPRAMIDE 10 MG INJ IV ×2 (00:30)
[2019-01-31] MEDS: HYDROCODONE/APAP (5/325) TAB PO ×4 (01:39→18:26)
[2019-01-31 05:05] LABS: ADD MAN DIFF? NO
[2019-01-31 05:09] LABS: ABNORMAL IP MESSAGE 1; BASOPHILS % 0.5 % (0.0-2.0); EOSINOPHILS % 0.5 % (0.0-7.0); HEMATOCRIT 20.5 % (37.0-47.0); LYMPHOCYTES % 23.3 % (15.0-51.0); MEAN CORPUSCULAR HEMOGLOBIN 30.9 pg (29.0-33.0); MEAN CORPUSCULAR HGB CONC 33.2 g/dl (32.0-37.0); MEAN CORPUSCULAR VOLUME 93.2 fl (82.0-101.0); MEAN PLATELET VOLUME 9.8 fl (7.4-10.4); MONOCYTE # 0.8 10^3/ul (0.3-0.9); MONOCYTES % 17.4 % (0.0-11.0); NEUTROPHIL # 2.6 10^3/ul (1.6-7.5); NEUTROPHILS % 58.1 % (39.0-77.0); PLATELET COUNT 116 10^3/UL (140-415); RED CELL DISTRIBUTION WIDTH 20.2 % (11.5-14.5)
[2019-01-31 05:09] LABS: WHITE BLOOD COUNT 4.4 10^3/ul (4.8-10.8)
[2019-01-31 05:42] LABS: HEMOGLOBIN 6.8 g/dl (12.0-16.0); POSITIVE DIFF @See below
[2019-01-31] MEDS: FAMOTIDINE 20 MG TAB PO ×2 (08:48→20:41)
[2019-01-31 17:28] LABS: HEMATOCRIT 24.8 % (37.0-47.0)
[2019-01-31 17:28] LABS: HEMOGLOBIN 8.4 g/dl (12.0-16.0)
[2019-01-31] MEDS: HEPARIN (100 UNITS/ML) 5 ML SYG CATHETER ×2 (20:26)
[2019-02-01] MEDS ORDERED: BENAZEPRIL 20 MG TAB PO (09:00)
[2019-02-01] MEDS ORDERED: HYDROCHLOROTHIAZIDE 25 MG TAB PO (09:00)
== END 2019-01-31 20:30 | disposition home or self-care (01) | DRG 812 ==
LOC: E/R 10:29 → MS1 12:01
PROVIDERS: Pediatrics
PROC: 30233N1 Transfusion of Nonautologous Red Blood Cells into Peripheral Vein, Percutaneous Approach (ICD-10-PCS; principal; 2019-01-30)
DX: D64.81 Anemia due to antineoplastic chemotherapy (principal); C78.00 Secondary malignant neoplasm of unspecified lung; C50.911 Malignant neoplasm of unspecified site of right female breast; D63.8 Anemia in other chronic diseases classified elsewhere
CPT/HCPCS: 36430; 71045; 80053; 83690; 84484; 85014; 85018; 85025; 85610; 85730; 86850; 86900; 86901; 86920; 93005; 99285-25

== ENCOUNTER 2019-02-15 21:02 | Inpatient (IN) | payer OTHER ==
[2019-02-15 23:03] LABS: URINE BLOOD (Dip) POC 1+ (NEGATIVE); URINE GLUCOSE (Dip) POC Negative (NEGATIVE); URINE KETONES (Dip) POC Negative (NEGATIVE); URINE LEUKOCYTE EST (Dip) POC Negative (NEGATIVE); URINE NITRITE (Dip) POC Negative (NEGATIVE); URINE TOTAL PROTEIN POC Trace (NEGATIVE)
[2019-02-15 23:03] LABS: URINE PH (Dip) POC 5.5 (5.0-8.5)
[2019-02-15 23:49] LABS: ADD MAN DIFF? NO
[2019-02-15 23:53] LABS: WHITE BLOOD COUNT 6.8 10^3/ul (4.8-10.8)
[2019-02-15 23:53] LABS: ABNORMAL IP MESSAGE 1; BASOPHILS % 0.1 % (0.0-2.0); EOSINOPHILS % 0.1 % (0.0-7.0); HEMATOCRIT 16.3 % (37.0-47.0); LYMPHOCYTES # 1.9 10^3/ul (0.8-2.9); LYMPHOCYTES % 27.2 % (15.0-51.0); MEAN CORPUSCULAR HGB CONC 33.7 g/dl (32.0-37.0); MEAN CORPUSCULAR VOLUME 94.8 fl (82.0-101.0); MEAN PLATELET VOLUME 9.1 fl (7.4-10.4); MONOCYTE # 1.1 10^3/ul (0.3-0.9); MONOCYTES % 16.2 % (0.0-11.0); NEUTROPHIL # 3.8 10^3/ul (1.6-7.5); NEUTROPHILS % 55.8 % (39.0-77.0); PLATELET COUNT 85 10^3/UL (140-415); RED BLOOD COUNT 1.72 10^6/ul (4.20-5.40); RED CELL DISTRIBUTION WIDTH 15.9 % (11.5-14.5)
[2019-02-16 00:11] LABS: HEMOGLOBIN 5.5 g/dl (12.0-16.0)
[2019-02-16 00:12] LABS: INR 1.09; POSITIVE DIFF @See below; PROTIME 14.2 Sec (11.9-14.9); PT RATIO 1.1
[2019-02-16 00:13] LABS: PARTIAL THROMBOPLASTIN TIME 29.9 Sec (23.0-35.0)
[2019-02-16 00:18] LABS: ALANINE AMINOTRANSFERASE 22 IU/L (13-69); ALBUMIN 4.1 g/dl (3.3-4.9); ALBUMIN/GLOBULIN RATIO 1.36; ALKALINE PHOSPHATASE 86 IU/L (42-121); ANION GAP 7 (5-13); ASPARTATE AMINO TRANSFERASE 18 IU/L (15-46); BILIRUBIN,INDIRECT 0.4 mg/dl (0-1.1); BILIRUBIN,TOTAL 0.4 mg/dl (0.2-1.3); BLOOD UREA NITROGEN 15 mg/dl (7-20); CALCIUM 8.9 mg/dl (8.4-10.2); CARBON DIOXIDE 31 mmol/L (21-31); CHLORIDE 98 mmol/L (97-110); Estimated GFR > 60 mL/min (>60); GLUCOSE 120 mg/dl (70-220); POTASSIUM 3.3 mmol/L (3.5-5.1); SODIUM 136 mmol/L (135-144); TOTAL PROTEIN 7.1 g/dl (6.1-8.1)
[2019-02-16 00:28] LABS: TROPONIN-I < 0.012 ng/ml (0.000-0.120)
[2019-02-16] MEDS: POTASSIUM CHLORIDE (SR) 20 MEQ TAB PO (01:41)
[2019-02-16 03:49] LABS: IMMEDIATE SPIN CROSSMATCH 1 4
[2019-02-16] MEDS ORDERED: METOCLOPRAMIDE 10 MG INJ IV (05:30)
[2019-02-16] MEDS: HYDROCODONE/APAP (10/325) TAB PO ×3 (08:21→19:45)
[2019-02-16] MEDS: BENAZEPRIL 20 MG TAB PO (08:21)
[2019-02-16] MEDS: CHOLECALCIFEROL 2,000 UNIT CAP PO (08:21)
[2019-02-16] MEDS ORDERED: NON-FORMULARY/PATIENT OWN MED (Cholecalciferol (Vitamin D3) (Vitamin D-3) 1 TAB) ORAL (09:00)
[2019-02-16] MEDS: ACETAMINOPHEN 325 MG TAB PO (16:05)
[2019-02-17] MEDS: HYDROCODONE/APAP (10/325) TAB PO ×5 (01:09→21:32)
[2019-02-17 04:55] LABS: OCCULT BLOOD STOOL NEGATIVE (NEGATIVE)
[2019-02-17 05:20] LABS: ADD MAN DIFF? NO
[2019-02-17 05:41] LABS: WHITE BLOOD COUNT 4.6 10^3/ul (4.8-10.8)
[2019-02-17 05:41] LABS: ABNORMAL IP MESSAGE 1; BASOPHILS % 0.4 % (0.0-2.0); EOSINOPHILS % 0.4 % (0.0-7.0); HEMATOCRIT 22.8 % (37.0-47.0); HEMOGLOBIN 7.6 g/dl (12.0-16.0); LYMPHOCYTES # 1.2 10^3/ul (0.8-2.9); LYMPHOCYTES % 25.4 % (15.0-51.0); MEAN CORPUSCULAR HEMOGLOBIN 32.1 pg (29.0-33.0); MEAN CORPUSCULAR HGB CONC 33.3 g/dl (32.0-37.0); MEAN CORPUSCULAR VOLUME 96.2 fl (82.0-101.0); MEAN PLATELET VOLUME 10.7 fl (7.4-10.4); MONOCYTE # 0.9 10^3/ul (0.3-0.9); NEUTROPHIL # 2.4 10^3/ul (1.6-7.5); NEUTROPHILS % 52.7 % (39.0-77.0); PLATELET COUNT 78 10^3/UL (140-415); RED BLOOD COUNT 2.37 10^6/ul (4.20-5.40); RED CELL DISTRIBUTION WIDTH 15.5 % (11.5-14.5)
[2019-02-17 05:57] LABS: POSITIVE DIFF @See below
[2019-02-17 06:05] LABS: ANION GAP 5 (5-13); BLOOD UREA NITROGEN 12 mg/dl (7-20); CALCIUM 8.3 mg/dl (8.4-10.2); CARBON DIOXIDE 30 mmol/L (21-31); CHLORIDE 105 mmol/L (97-110); CREATININE 0.59 mg/dl (0.44-1.00); Estimated GFR > 60 mL/min (>60); GLUCOSE 113 mg/dl (70-220); POTASSIUM 4.1 mmol/L (3.5-5.1); SODIUM 140 mmol/L (135-144)
[2019-02-17] MEDS: CHOLECALCIFEROL 2,000 UNIT CAP PO (08:10)
[2019-02-17] MEDS: BENAZEPRIL 20 MG TAB PO (08:10)
[2019-02-17] MEDS: DOCUSATE SODIUM 100 MG CAP PO (11:57)
[2019-02-18] MEDS: HYDROCODONE/APAP (10/325) TAB PO ×3 (02:39→12:10)
[2019-02-18 05:12] LABS: ADD MAN DIFF? NO
[2019-02-18 05:22] LABS: ABNORMAL IP MESSAGE 1; BASOPHILS % 0.2 % (0.0-2.0); EOSINOPHILS % 0.4 % (0.0-7.0); HEMOGLOBIN 9.3 g/dl (12.0-16.0); LYMPHOCYTES % 18.2 % (15.0-51.0); MEAN CORPUSCULAR HEMOGLOBIN 31.2 pg (29.0-33.0); MEAN CORPUSCULAR HGB CONC 33.2 g/dl (32.0-37.0); MEAN PLATELET VOLUME 10.7 fl (7.4-10.4); MONOCYTES % 17.1 % (0.0-11.0); NEUTROPHIL # 3.6 10^3/ul (1.6-7.5); NEUTROPHILS % 63.2 % (39.0-77.0); PLATELET COUNT 94 10^3/UL (140-415); RED BLOOD COUNT 2.98 10^6/ul (4.20-5.40); RED CELL DISTRIBUTION WIDTH 15.1 % (11.5-14.5)
[2019-02-18 05:22] LABS: WHITE BLOOD COUNT 5.7 10^3/ul (4.8-10.8)
[2019-02-18 05:28] LABS: POSITIVE DIFF @See below
[2019-02-18] MEDS: CHOLECALCIFEROL 2,000 UNIT CAP PO (09:53)
[2019-02-18] MEDS: BENAZEPRIL 20 MG TAB PO (09:53)
== END 2019-02-18 14:00 | disposition home or self-care (01) | DRG 181 ==
LOC: E/R 21:02 → MS1 02-16 02:04
PROVIDERS: Internal Medicine; Pediatrics
PROC: 30233N1 Transfusion of Nonautologous Red Blood Cells into Peripheral Vein, Percutaneous Approach (ICD-10-PCS; principal; 2019-02-16)
DX: C78.00 Secondary malignant neoplasm of unspecified lung (principal); D61.818 Other pancytopenia; D63.0 Anemia in neoplastic disease; I10 Essential (primary) hypertension; E87.6 Hypokalemia; Z90.11 Acquired absence of right breast and nipple; Z80.3 Family history of malignant neoplasm of breast; Z85.3 Personal history of malignant neoplasm of breast
CPT/HCPCS: 36415; 36430; 80048; 80053; 81003; 81025; 82270; 84484; 85025; 85610; 85730; 86850; 86900; 86901; 86920; 87081; 93005; 99285-25